=== PATIENT | female | born 1955 | race Native Hawaiian/Other Pacific Islander ===

== ENCOUNTER 2022-04-12 10:59 | Emergency (ER) | payer OTHER ==
[~2022-04-12] VITALS: Ht 162.6 cm; Wt 69.9 kg
[2022-04-12 11:00] VITALS: TEMP 98.5
[2022-04-12 11:30] LABS: PLATELET COUNT 296 K/uL (152-353)
[2022-04-12 11:42] LABS: PARTIAL THROMBOPLASTIN TIME 25.9 SECONDS (24.5-33.6); POTASSIUM 3.9 mmol/L (3.6-5.2)
[2022-04-12 14:15] VITALS: BP 125/69
== END 2022-04-12 14:15 | disposition left against medical advice (07) ==
LOC: ED 10:59
PROVIDERS: Emergency Medicine
DX: G45.9 Transient cerebral ischemic attack, unspecified (principal); E86.0 Dehydration; I95.1 Orthostatic hypotension; Z53.29 Procedure and treatment not carried out because of patient's decision for other reasons
CPT/HCPCS: 36415; 80053; 80307; 81002; 82550; 84484; 85027; 85379; 85610; 85730; 93005; 96360; 99284; Q9963